=== PATIENT | female | born 1960 | race Caucasian/White ===

== ENCOUNTER → 2018-02-03 | Outpatient (CLI) | payer MEDICARE, OTHER ==
--- NOTE | 2018-02-03 11:51 | US ---
EXAMINATION TYPE: US abdomen complete DATE OF EXAM: 02/03/2018 COMPARISON: NONE CLINICAL HISTORY: R10.9 Abdominal Pain. Intermittent LUQ pain for 1 month. Cholecystectomy EXAM MEASUREMENTS: Liver Length: 15.5 cm Gallbladder Wall: Surgically absent CBD: 0.4 cm Spleen: 12.4 cm Right Kidney: 10.0 x 3.8 x 4.1 cm Left Kidney: 10.7 x 5.2 x 4.6 cm *Technical limitations due to large amount of overlying bowel content Pancreas: Obscured by bowel gas Liver: hyperechoic area left lobe = 1.6 x 1.4 x 1.5cm. Hemangioma could be considered within the dif ferential. Gallbladder: Surgically absent Evidence for sonographic Chawla's sign: No CBD: wnl Spleen: wnl Right Kidney: no evidence of hydronephrosis or mass as visualized Left Kidney: no evidence of hydronephrosis or mass as visualized Upper IVC: wnl Abd Aorta: visualized portions appear wnl IMPRESSION: 1. Suspected hemangioma within the right lobe liver.
--- NOTE | 2018-02-03 11:52 | US ---
EXAMINATION TYPE: US pelvic complete DATE OF EXAM: 02/03/2018 COMPARISON: NONE CLINICAL HISTORY: R10.9 Abdominal Pain. Intermittent LUQ pain TECHNIQUE: Transabdominal (TA). Date of LMP: unknown EXAM MEASUREMENTS: Uterus: 11.2 x 5.8 x 9.4 cm Endometrial Stripe: 0.6 cm Right Ovary: 2.9 x 1.3 x 1.4 cm Left Ovary: 2.9 x 1.2 x 1.4 cm 1. Uterus: Anteverted heterogenous in appearance, multiple calcified areas noted with largest = 3. 7 x 2.4 x 3.6cm. Solid area left uterus = 5.2 x 3.0 x 3.9cm, possible pedunculated fibroid 2. Endometrium: appears wnl 3. Right Ovary: appears wnl 4. Left Ovary: appears wnl 5. Bilateral Adnexa: wnl 6. Posterior cul-de-sac: wnl IMPRESSION: 1. Uterine fibroids some of which are likely calcified.
== END | disposition home or self-care (01) ==
LOC: RADUSWWP 08:51
PROVIDERS: ATTEND Family Medicine
DX: D25.9 Leiomyoma of uterus, unspecified (principal); R10.9 Unspecified abdominal pain
CPT/HCPCS: 76700; 76856

== ENCOUNTER → 2019-07-13 | Outpatient (CLI) | payer MEDICARE, OTHER ==
--- NOTE | 2019-07-13 13:56 | MM ---
Reason for exam: screening (asymptomatic). Last mammogram was performed 4 years and 1 month ago. History: Patient is postmenopausal. Physical Findings: A clinical breast exam by your physician is recommended on an annual basis and results should be correlated with mammographic findings. MG Screening Mammo w CAD Bilateral CC and MLO view(s) were taken. Prior study comparison: June 03, 2015, right breast MG 3d work up w/cad RT. May 18, 2015, bilateral MG screening mammo w CAD. The breast tissue is heterogeneously dense. This may lower the sensitivity of mammography. Finding: There are typically benign dystrophic calcifications in the left breast. There is no discrete abnormality. ASSESSMENT: Benign, BI-RAD 2 RECOMMENDATION: Routine screening mammogram of both breasts in 1 year.
== END | disposition home or self-care (01) ==
LOC: RADMAMWWP 08:00
PROVIDERS: ATTEND Family Medicine
DX: Z12.31 Encounter for screening mammogram for malignant neoplasm of breast (principal)
CPT/HCPCS: 77067